=== PATIENT | female | born 1940 | race Caucasian/White ===

== ENCOUNTER → 2016-06-28 | Outpatient (CLI) | payer OTHER ==
[~2016-06-28] MED LIST: ASPI81TA28 PO; ATEN-173 PO; CALC600T9 PO; CHOL1000 PO; FLAX12003 PO
--- NOTE | 2016-06-29 13:07 | MAMMOGRAPHY REPORT ---
UNILATERAL RIGHT DIGITAL SCREENING MAMMOGRAM TOMOSYNTHESIS WITH CAD: 06/28/2016 CLINICAL HISTORY: Asymptomatic. Personal history of breast cancer. TECHNIQUE: Right breast tomosynthesis in addition to standard 2D mammography was performed. Current study was also evaluated with a Computer Aided Detection (CAD) system. COMPARISON: Comparison is made to exams dated: 06/25/2015 mammogram, 06/21/2014 mammogram, 06/20/2013 mammogram, 06/19/2012 mammogram, 06/18/2011 mammogram, and 06/12/2010 mammogram - [facility]. BREAST COMPOSITION: The tissue of the right breast is heterogeneously dense, which may obscure smal l masses. FINDINGS: There is a 13 mm asymmetry in the superior posterior right breast, projecting over the pe ctoralis muscle on the MLO view. This is thought to project medially or in the 12:00 axison the lucila osynthesis localizer bar, although it is not clearly seen on the CC projection. Additional targeted ultrasound and possible additional mammographic views are recommended. There are also 2-3 grouping s of microcalcifications in the left breast, within the central breast, 6:00 axis and upper outer qu adrant, for which additional spot magnification views are recommended. No focal area of architectural distortion is identified. IMPRESSION: ACR BI-RADS CATEGORY 0: INCOMPLETE EVALUATION: NEED ADDITIONAL IMAGING EVALUATION The 13 mm asymmetry in the superior, posterior right breast, and clusters of microcalcifications wit hin the right breast need additional imaging evaluation. The patient will be called to schedule an appointment. Approximately 10% of breast cancers are not detected with mammography. A negative mammographic repor t should not delay biopsy if a clinically suggestive mass is present. Renetta Coy M.D. ay/:06/28/2016 16:01:27 Communication Specialist: Valentín MCADAMS(R)(M), [facility] letter sent: Addl Imaging 0 BI-RADS Code: ACR BI-RADS Category 0: Incomplete Evaluation: Need Additional Imaging Evaluation
== END | disposition home or self-care (01) ==
LOC: C.MAMM 10:36
PROVIDERS: ATTEND Internal Medicine
DX: Z12.31 Encounter for screening mammogram for malignant neoplasm of breast (principal); N64.89 Other specified disorders of breast; R92.0 Mammographic microcalcification found on diagnostic imaging of breast; Z85.3 Personal history of malignant neoplasm of breast; Z90.12 Acquired absence of left breast and nipple

== ENCOUNTER → 2016-07-07 | Outpatient (CLI) | payer OTHER ==
--- NOTE | 2016-07-07 13:16 | MAMMOGRAPHY REPORT ---
UNILATERAL RIGHT DIGITAL DIAGNOSTIC MAMMOGRAM AND TARGETED RIGHT ULTRASOUND: 07/07/2016 CLINICAL HISTORY: 75-year-old woman called back from screening mammography for a 13 mm asymmetry in the superior, far posterior right breast projecting over the pectoralis muscle on the MLO view, and also clusters of microcalcifications within the right breast. Personal history of left breast cance r status post mastectomy. TECHNIQUE: Spot magnification right CC and ML views were obtained. COMPARISON: Comparison is made to exams dated: 06/28/2016 mammogram, 06/25/2015 mammogram, 06/21/2014 m ammogram, 06/20/2013 mammogram, 06/19/2012 mammogram, and 06/18/2011 mammogram - [facility]. BREAST COMPOSITION: The tissue of the right breast is heterogeneously dense, which may obscure smal l masses. FINDINGS: Spot magnification views of the right breast demonstrate a few scattered benign coarse and rim calcifications. There are also 2 clusters of microcalcifications in the middle to posterior br east in the 6:00 and 12:00 axes. When comparing back to prior available mammograms, the microcalcif ications appear similar in number and distribution dating back to at least 06/11/2009, therefore lik salty benign. Targeted ultrasound was performed in the superior right breast to assess for the 13 mm asymmetry pro jecting over the pectoralis muscle on the MLO view. In the 12:30 axis, 5 cm from the nipple, there is a mixed echogenicity hypoechoic solid mass with indistinct borders measuring 13.8 x 8.5 x 13.5 mm . This correlates well in size and location as the mammographic asymmetry and is suspicious for mal ignancy. Definitive characterization with tissue sampling is recommended. Additional sonographic e valuation was performed in the right axilla, and there is no suspicious lymphadenopathy. IMPRESSION: ACR BI-RADS CATEGORY 4C: MODERATE SUSPICION FOR MALIGNANCY, TARGETED ULTRASOUND ACR BI- RADS CATEGORY 4C: MODERATE SUSPICION FOR MALIGNANCY 1. Ultrasound guided core needle biopsy is recommended for an indeterminate solid 13.8 mm mass in t he 12:30 right breast, which correlates with the mammographic asymmetry seen on recent screening alec mography. 2. No suspicious right axillary lymphadenopathy identified on ultrasound. 3. Clusters of microcalcifications in the 12:00 and 6:00 right breast appears stable for at least 7 years, therefore considered benign. These results and recommendations were discussed with the patient and her at the time of the exam. She tentatively scheduled the biopsy prior to leaving our department. Approximately 10% of breast cancers are not detected with mammography. A negative mammographic repor t should not delay biopsy if a clinically suggestive mass is present. Renetta Coy M.D. ay/:07/07/2016 10:39:24 Oil Spraying Machine Operator: Valentín MCADAMS(Sue)(Larry), [facility] letter sent: Abnormal 4/5 BI-RADS Code: ACR BI-RADS Category 4C: Moderate Suspicion For Malignancy Ultrasound BI-RADS: ACR BI -RADS Category 4C: Moderate Suspicion For Malignancy
== END | disposition home or self-care (01) ==
LOC: C.MAMM 09:40
PROVIDERS: ATTEND Internal Medicine
DX: N63 Unspecified lump in breast (principal); R92.0 Mammographic microcalcification found on diagnostic imaging of breast

== ENCOUNTER → 2016-07-12 | Outpatient (CLI) | payer OTHER ==
--- NOTE | 2016-07-12 09:19 | Discharge Instructions ---
Discharge Instructions Procedure Procedure Date: July 12, 2016. Reason for visit: Right Mass. Discharge Discharge Date: July 12, 2016. Discharge Diagnosis: post right breast ultrasound guided core biopsy Medications Restart Stopped Medication(s): May restart Aspirin today as long as not bleeding through bandages Instructions Activity Recommendations: Additional Limitations (see below) Return to School/Work: no limitations Recommended Home Diet: No Limitations Provider Instructions: ACTIVITY RECOMMENDATIONS: * No lifting, pushing, pulling or exercising the affected side for three days. RETURN TO SCHOOL/WORK: * You may return to work/school after the procedure, but do not perform any strenuous activities for 24 to 48 hours. MEDICATIONS: * Tylenol (two 325 mg) every four to six hours if needed for mild pain (if not allergic to Tylenol). DIET: * Resume previous diet. SPECIAL CARE INSTRUCTIONS: * Keep biopsy site dry for 24 hours. May shower after 24 hours, but do not soak (bathe) incision. * May remove Tegaderm (plastic patch) tomorrow AFTER showering. * Leave the steri-strips on for one week. Allow the steri-strips to fall off by themselves. If not off after one week, you may remove them. You may place a Bandaid crosswise over the strips, if desired. * Apply ice 10 minutes on and 10 minutes off as needed. * Wear a bra at bedtime to sleep more comfortably for 2-3 days. * Your referring physician should have the results after approximately 5 to 7 business days. * Call for unusual bleeding, fever, drainage, etc or if you have any questions call [phone] during normal business hours or after hours call Dr Coy, . FOLLOW UP VISIT: Follow-up with Referring Physician as scheduled. Allergies Uncoded Allergies: N (Allergy, Unknown, 04/12/02) NKDA (Allergy, Unknown, 04/12/02) NO (Allergy, Unknown, 04/12/02) Wilfrido Day Recommendations: Call your doctor if: * Temperature above 101 degrees * Pain not relieved by pain medicine ordered * There is increased drainage or redness from any incision * You have any unanswered questions or concerns. Your Doctors Instructions noted above were prepared by provider Renetta Coy. Patient Signature Section: Patient Instructions Signature Page Karina Jackson Patient (or Guardian) Signature/Date: I have read and understand the instructions given to me by my caregivers. Caregiver/RN/Doctor Signature/Date: The above-named patient and/or guardian has received patient instructions on this date. + Original Patient Signature Page (only) stays with chart. Please make copy for patient.
--- NOTE | 2016-07-12 14:45 | MAMMOGRAPHY REPORT ---
ULTRASOUND GUIDED BIOPSY RIGHT BREAST: 07/12/2016 CLINICAL HISTORY: Indeterminate solid mass in the 12:30 right breast. Patient presents for ultrasou nd-guided core needle biopsy. Remote history of left breast cancer status post mastectomy. COMPARISON: Comparison is made to exams dated: 07/07/2016 ultrasound, 07/07/2016 mammogram, 06/28/2016 mammogram, 06/25/2015 mammogram, 06/21/2014 mammogram, and 06/20/2013 mammogram - [facility]. PATIENT CONSENT: The procedure, risks and benefits were discussed with the patient and informed writ ten consent was obtained. Specific risks to this procedure include: bleeding, infection, puncture of adjacent structure, nontarget biopsy, sampling error, metal allergy and medication reaction. PROCEDURE DESCRIPTION: A time out was performed and the right breast was agreed as the site of biops y. The skin was prepped and draped in the usual sterile fashion. The solid mass in the 12:30 right b reast was chosen as the target for biopsy. Subcutaneous and intraparenchymal 1% buffered lidocaine w as administered as local anesthesia. A skin incision was made. Through the incision, 4 samples were taken with a 14 gauge Achieve biopsy device. A metallic marker was placed at the biopsy site. Hemos tasis was achieved after manual compression. The patient tolerated the procedure well and there was no immediate complication. The samples were sent to the pathology department in an appropriately la beled container. Postprocedure right CC and ML views were obtained. The metallic biopsy marker clip is seen aligning with the mammographic mass in question on the right ML view. No significant postbiopsy hematoma is seen. Neither the mass nor the biopsy marker clip are visualized on the CC views due to the far po sterior location. IMPRESSION: ULTRASOUND GUIDED BIOPSY Status post ultrasound-guided core needle biopsy of an indeterminate solid mass in the 12:30 right b reast, with biopsy marker placed at the site. The patient will receive notification of the biopsy results from her referring physician. Renetta Coy M.D. ay/:07/12/2016 09:51:56 Project Manager/Design Manager: Shanika CONKLIN)(Larry), [facility]
--- NOTE | 2016-07-12 14:46 | MAMMOGRAPHY REPORT ---
UNILATERAL RIGHT DIGITAL DIAGNOSTIC MAMMOGRAM: 07/12/2016 CLINICAL HISTORY: Status post ultrasound guided core biopsy of a hypoechoic mass in the 12:30 right breast. Please refer to the report from right breast ultrasound guided core biopsy performed at the same tasha e for full detail. IMPRESSION: POST PROCEDURE IMAGING FOR MARKER PLACEMENT Please refer to the report from right breast ultrasound guided core biopsy performed at the same tasha e for full detail. Approximately 10% of breast cancers are not detected with mammography. A negative mammographic repor t should not delay biopsy if a clinically suggestive mass is present. Renetta Coy M.D. ay/:07/12/2016 09:18:23 Private Pilot: Shanika CONKLIN)(Larry), [facility] BI-RADS Code: Post Procedure Imaging For Marker Placement
== END | disposition home or self-care (01) ==
LOC: C.MAMM 08:17
PROVIDERS: ATTEND Internal Medicine
DX: C50.911 Malignant neoplasm of unspecified site of right female breast (principal)

== ENCOUNTER 2016-08-30 07:25 | Observation (INO) | payer OTHER ==
[2016-08-13 12:12] VITALS: BMI 23.0
--- NOTE | 2016-08-13 12:43 | PAT Medication Instructions ---
Service Date Aug 13, 2016. Current Home Medication List Aspirin (Aspirin Ec), 81 MG PO QAM Atenolol (Tenormin), 12.5 MG PO BID Calcium Carbonate-Vitamin D (Calcium + D), 1 TAB PO BID Cholecalciferol (Vitamin D3), 1 TAB PO QPM Flaxseed (Linseed) (Flaxseed Oil), 1 TAB PO BID Medication Instructions For Your Scheduled Surgery - Hold the following medications 2 weeks prior to surgery: Flaxseed (Linseed) (Flaxseed Oil), 1 TAB PO BID - Hold the following medications the morning of surgery: Calcium Carbonate-Vitamin D (Calcium + D), 1 TAB PO BID - Take the following medications the morning of surgery with a sip of water: Atenolol (Tenormin), 12.5 MG PO BID Aspirin (Aspirin Ec), 81 MG PO QAM - Take the following medications as scheduled the night before surgery: Cholecalciferol (Vitamin D3), 1 TAB PO QPM Atenolol (Tenormin), 12.5 MG PO BID Calcium Carbonate-Vitamin D (Calcium + D), 1 TAB PO BID If you have any questions please call us at [phone] or [phone] ( [place]) or [phone]
[~2016-08-30] VITALS: Ht 160 cm; Wt 58.9 kg
[2016-08-30] VITALS (7 sets, daily range): BP systolic 129–156; BP diastolic 68–85; PULSE 61–78; TEMP 36.4–36.8; O2SAT 92–99; Ht 160 cm; Wt 58.9 kg
[~2016-08-30 07:25] MED LIST changes: +LACTATED RINGER'S 1000ML 1,000 ML IV SCH
[2016-08-30] MEDS ORDERED: MIDAZOLAM HCL 1 MG/ML 2ML VIAL ONE (07:44)
[2016-08-30] MEDS ORDERED: PROPOFOL IV EMULSION 10 MG/ML 20 ML VIAL IV ONE (07:44)
[2016-08-30] MEDS ORDERED: LIDOCAINE HCL 2% 2 ML VIAL (20MG/ML) ONE (07:44)
[2016-08-30] MEDS ORDERED: DEXAMETHASONE SOD INJ 4 MG/ML VIAL ONE (07:44)
[2016-08-30] MEDS ORDERED: ONDANSETRON INJ 2 MG/ML 2 ML VIAL ONE ×2 (07:44→11:18)
[2016-08-30] MEDS ORDERED: FENTANYL CITRATE INJ 50 MCG/1 ML 2 ML VIAL ONE ×2 (07:45→10:54)
[2016-08-30] MEDS ORDERED: SCOPOLAMINE 1.5 MG TDSY TD ONE ×2 (08:38→08:45)
[2016-08-30] MEDS ORDERED: ONDANSETRON INJ 2 MG/ML 2 ML VIAL IV PRN ×2 (08:45→11:45)
[2016-08-30] MEDS ORDERED: NURSING VERBAL MED ORDER ONE (08:45)
[2016-08-30] MEDS ORDERED: FENTANYL CITRATE INJ 50 MCG/1 ML 2 ML VIAL IV PRN (08:45)
[2016-08-30] MEDS ORDERED: EpHEDrine SULFATE INJ 50 MG/ML AMP IV PRN (08:45)
[2016-08-30] MEDS ORDERED: ATROPINE SULFATE 0.1 MG/ML 5ML SYR IV PRN (08:45)
[2016-08-30] MEDS ORDERED: METHYLENE BLUE 0.5% 10 ML VIAL ONE (09:29)
--- NOTE | 2016-08-30 09:41 | DIAGNOSTIC IMAGING REPORT ---
NUCLEAR MEDICINE RIGHT BREAST LYMPHOSCINTIGRAPHY RADIOGRAPHIC INJECTION CLINICAL HISTORY: Right breast carcinoma COMPARISON STUDY: Mammogram dated 07/07/2016 FINDINGS: Timeout was performed. The patient's right breast was prepped in sterile fashion. 5 periareolar intradermal injections were performed utilizing 0.52 mCi of technetium 99m Lymphoseek. The patient was sent to the operating room for intraoperative localization. IMPRESSION: A right breast lymphoscintigraphy injection was performed Electronically signed by: Tee Ambrocio M.D. 08/30/2016 9:39 AM Dictated Date/Time: 08/30/2016 9:38 AM
--- NOTE | 2016-08-30 09:48 | History & Physical Bridge Note ---
H&P Re-Evaluation Bridge Note: I have examined the patient, reviewed the History & Physical and in the interval since the performance of the History & Physical I have noted the following changes of clinical significance: No changes noted
[2016-08-30] MEDS ORDERED: EpHEDrine SULFATE 50MG/5ML SYR ONE (10:12)
[2016-08-30] MEDS ORDERED: EpHEDrine SULFATE INJ 50 MG/ML AMP ONE (11:19)
[2016-08-30] MEDS ORDERED: SODIUM CHLORIDE 0.9% INJ 10 ML VIAL ONE (11:19)
--- NOTE | 2016-08-30 11:40 | [facility] Post Operative Brief Note ---
Immediate Operative Summary Operative Date Aug 30, 2016. Pre-Operative Diagnosis Right Breast Cancer, Stage 1 Post-Operative Diagnosis Same as preoperative Procedure(s) Performed Right Mastectomy, [place] Lymph Node Biopsy Surgeon Dr. Chuck Light Etl Bi Developer Surgeon(s) Cira Plata PA-C Estimated Blood Loss 25ml Findings See dictation Specimens FROZEN: [place] Lymph Node #1, Blue, Invivo 14, Exvivo 215 (left OR10 @ 1037) [place] Lymph Node #2, Invivo 47, Exvivo 633 (left OR10 @ 1043) [place] Lymph Node #3, Blue, Invivo 105, Exvivo (left OR10 @ 1048) FRESH: A.) Right Breast, Lateral Stitch Drains one J-P across the chest wall Anesthesia General Complication(s) None Disposition Recovery Room / PACU
[2016-08-30] MEDS ORDERED: MoRPHine SULFATE 10 MG/ML CARP/VIAL IV PRN (11:45)
[2016-08-30] MEDS ORDERED: OXYCODONE/ACETAMINOPHEN 5-325 TAB PO PRN (11:45)
[2016-08-30] MEDS ORDERED: MoRPHine SULFATE 2 MG/ML CARP IV PRN (12:00)
--- NOTE | 2016-08-30 12:08 | [facility] Operative Report ---
Operative Report Operative Date Aug 30, 2016. Pre-Operative Diagnosis Right Breast Cancer, Stage 1 Post-Operative Diagnosis Same Procedure(s) Performed Right mastectomy, right axillary sentinel lymph node biopsy Surgeon Dr. Chuck Light Pharmaceutical Analyst Surgeon(s) Cira Plata PA-C Estimated Blood Loss 25ml Findings The biopsy cavity of the breast was never encountered. There was no evidence of extension posterior to the prepectoral fascia. 3 sentinel lymph nodes were identified. [place] lymph node #1 was blue and had an in vivo count of 14 which was measured prior to incision with an ex vivo count of 215. [place] lymph node #2 was not blue and had an in vivo count of 47 and ex vivo count of 633. [place] lymph node #3 was blue and had an in vivo count of 105 with an ex vivo count of 265. Frozen section on all 3 lymph nodes showed no evidence of metastatic disease. There were no other grossly enlarged lymph nodes identified. Specimens FROZEN: [place] Lymph Node #1, Blue, Invivo 14, Exvivo 215 (left OR10 @ 1037) [place] Lymph Node #2, Invivo 47, Exvivo 633 (left OR10 @ 1043) [place] Lymph Node #3, Blue, Invivo 105, Exvivo (left OR10 @ 1048) FRESH: A.) Right Breast, Lateral Stitch Drains one J-P across the chest wall Anesthesia General Disposition Recovery Room / PACU Description of Procedure The patient was marked in the holding area and taken to the operating room placed on the operating table position and given general anesthesia. The blue dye was injected in the periareolar area. The elliptical incision was marked on the skin. The superior portion of that incision was made carried down in subcutaneous tissue and the superior flap was created extending up to the clavicle over to the lateral border of the sternum and to the lateral border of the pectoralis major. That allowed me access to the axilla where the neoprobe was used to identify sentinel lymph node #1. It was easily identified. It was grasped and away from the surrounding tissue using the LigaSure. That was sent for frozen section. [place] lymph node #2 and #3 were identified in a similar fashion. There were removed in a similar fashion and also sent for frozen section. The inferior portion of the incision was then performed. Skin flap was then created down to the superior aspect of the rectus fascia extending again over towards the lateral border of the sternal lateral border of the rectus muscle. The prepectoral fascia was then peeled off the underlying pectoralis major muscle working medial to lateral and off the muscle and chest wall. When the lymph nodes were reported to be negative the final lateral and superior lateral dissections were completed and the breast was removed. A stitch was placed on the lateral corner of the skin ellipse. Meticulous hemostasis was then obtained using electrocautery. A separate stab incision was made inferior to the incision through which a 10 mm Ran-Brown was brought. It was placed across the chest wall. Incision was then closed with interrupted 2-0 Vicryl in the deep subcutaneous tissue, running 3-0 Vicryl for the superficial subcutaneous tissue and 4-0 Monocryl in a running subcuticular fashion for the skin. The skin was cleansed dry pins were placed Steri-Strips applied. Estimate blood loss was 25 mL. Sponge needle and instrument counts were correct prior to closure. The patient tolerated the surgical procedure without complication and was transferred to recovery. I attest to the content of the Intraoperative Record and any orders documented therein. Any exceptions are noted below.
--- NOTE | 2016-08-30 12:14 | Anesthesiology Progress Note ---
Anesthesia Post Op Note Date & Time Aug 30, 2016 at 12:14 Vital Signs Pain Intensity: 0 Vital Signs Past 12 Hours Date Time Temp Pulse Resp B/P (MAP) Pulse Ox O2 Delivery O2 Flow Rate FiO2 08/30/16 12:10 78 16 126/87 100 Nasal Cannula 2 08/30/16 12:00 72 16 170/78 100 Oxymask 10 08/30/16 11:50 75 16 161/87 100 Oxymask 10 08/30/16 11:42 36.0 75 16 163/85 100 Oxymask 10 08/30/16 08:00 36.7 78 20 153/75 (101) 96 Room Air Notes Mental Status: alert / awake / arousable, participated in evaluation Pt Amnestic to Procedure: Yes Nausea / Vomiting: adequately controlled Pain: adequately controlled Airway Patency, RR, SpO2: stable & adequate BP & HR: stable & adequate Hydration State: stable & adequate Anesthetic Complications: no major complications apparent
[2016-08-30] MEDS: SODIUM CHLORIDE 0.9% 1000ML 1,000 ML IV SCH (12:57)
[2016-08-30] MEDS ORDERED: IV FLUIDS COMPLETED PRN (14:00)
[2016-08-31 03:27] VITALS: BP 119/64; PULSE 64; TEMP 36.8; O2SAT 98
[2016-08-31 07:38] VITALS: BP 134/70; PULSE 61; TEMP 36.6; O2SAT 99
--- NOTE | 2016-08-31 09:35 | Surgery Progress Note ---
Surgery Progress Note Date of Service Aug 31, 2016. Subjective Post OP Day: 1 + feeling well, + pain controlled, No nausea, No vomiting Objective Vital Signs: Date Time Temp Pulse Resp B/P (MAP) Pulse Ox O2 Delivery O2 Flow Rate FiO2 08/31/16 07:45 Room Air 08/31/16 07:38 36.6 61 18 134/70 (91) 99 Room Air 08/31/16 03:27 36.8 64 14 119/64 (82) 98 Room Air 08/31/16 00:00 Room Air 08/30/16 23:54 36.6 61 15 130/69 (89) 98 Room Air 08/30/16 20:14 36.7 78 18 129/68 (88) 92 Room Air 08/30/16 16:32 36.8 74 16 133/78 (96) 94 Room Air 08/30/16 16:10 Nasal Cannula 2.0 08/30/16 14:56 36.4 76 19 134/85 (101) 97 Nasal Cannula 2.0 08/30/16 14:00 36.6 71 19 156/82 (106) 99 Nasal Cannula 2.0 08/30/16 13:26 36.6 68 19 143/79 (100) 96 2.0 08/30/16 12:30 Nasal Cannula 2.0 08/30/16 12:30 Nasal Cannula 2.0 08/30/16 12:20 36.1 64 16 150/62 100 Nasal Cannula 2 08/30/16 12:10 78 16 126/87 100 Nasal Cannula 2 08/30/16 12:00 72 16 170/78 100 Oxymask 10 08/30/16 11:50 75 16 161/87 100 Oxymask 10 08/30/16 11:42 36.0 75 16 163/85 100 Oxymask 10 Physical Exam: KOLTON drainage (90 cc yesterday after surger, 20 cc last shift, serosanguinous) Incision(s): clean, dry, intact, no erythema, no drainage, ecchymosis Assessment & Plan S/P right mastectomy Doing well Can D/C to home Instructions discussed
--- NOTE | 2016-08-31 09:38 | Discharge Instructions ---
Discharge Instructions Date of Service Aug 31, 2016. Admission Reason for Admission: Cristina Mccray of Right Female Breast Discharge Discharge Diagnosis / Problem: Same Discharge Goals Goal(s): Improve disease control Activity Recommendations Activity Limitations: per Instructions/Follow-up section Lifting Limitations: no more than 10 pounds (especially with right arm) . Instructions / Follow-Up Instructions / Follow-Up MEDICATIONS: Resume previous medications unless instructed otherwise by your surgeon. * Percocet 5/325 mg one tablet every 4 hours as needed for pain. * Ibuprofen 600 mgm every 6 hours as needed for pain. SPECIAL CARE INSTRUCTIONS: * May shower after drain removed. * Leave steri strips on for 10 days. * Empty and record drain output. If amount decreased to less than 20 cc per day call office to have drain removed * Call the surgeon's office with any questions or concerns - (ex. temperature higher than 101 degrees F, excessive bleeding or pain). FOLLOW UP VISIT: If not already scheduled, please call the office for a follow-up appointment for next week at . Current Hospital Diet Patient's current hospital diet: Regular Diet Discharge Diet Recommended Diet: Regular Diet Procedures Procedures Performed: Right Mastectomy, [place] Lymph Node Biopsy Pending Studies Studies pending at discharge: yes List of pending studies: Pathology Medical Emergencies . Who to Call and When: Medical Emergencies: If at any time you feel your situation is an emergency, please call 911 immediately. . Non-Emergent Contact Non-Emergency issues call your: Primary Care Provider, Surgeon Call Non-Emergent contact if: your pain is worsening, wound has increased redness, wound has increased pain . "Provider Documentation" section prepared by Chuck Light. . VTE Core Measure Inpt VTE Proph given/why not?: Treatment not indicated
[2016-08-31 10:31] VITALS: BP 134/70; PULSE 61; TEMP 36.6; O2SAT 99
--- NOTE | 2016-09-02 10:50 | Discharge Summary ---
Discharge Summary Dates Admission Date / Time: Aug 30, 2016 at 08:10 Discharge Date: Aug 31, 2016 Dispostion / Condition Discharge Disposition: Home Condition at Discharge: Good Principal Diagnosis (1) Breast cancer Problem List (1) Breast cancer Consultations / Procedures Consultations: None Procedures: Right mastectomy with [place] lymph node biopsy Pending Studies / Follow-Up pathology pending Frozen path of the 3 lymph nodes during procedure were negative Medication Reconciliation Continued Medications: Aspirin (Aspirin Ec) 81 Mg Tab 81 MG PO QAM Atenolol (Tenormin) 25 Mg Tab 12.5 MG PO BID, TAB Calcium Carbonate-Vitamin D (Calcium + D) 1 Tab Tab 1 TAB PO BID Cholecalciferol (Vitamin D3) 1,000 Unit Tab 1 TAB PO QPM for 90 Days, TAB 3 Refills Flaxseed (Linseed) (Flaxseed Oil) 1 Cap Cap 1 TAB PO BID Admission HPI Per the Admitting provider: Patient was diagnosed with right breast cancer,stage 1. History of left mastectomy. Scheduled for elective right mastectomy with sentinel lymph node biopsy and possible axillary resection by Dr. Light at [facility] on 08/30/2016. She presented to [facility] for her surgical procedure as scheduled. Hospital Course (1) Breast cancer Patient was taken to operating room for right mastectomy, sentinel lymph node biopsy and possible axillary dissection. She tolerated procedure well without any complications and was transferred to PACU and then Med/surg floor in stable condition. Post op orders included PO Percocet, IV Morphine as breakthrough, IV Zofran, Regular diet, and KOLTON drain to bulb suction. POD # 1 patient was doing well. Pain was controlled with oral pain medication. All vital signs were stable. Tolerated regular diet. KOLTON drain had a total of 110 cc from surgery (90 day of surgery and 20 cc last shift). Patient was discharged home in stable condition on POD # 1. Overall hospital course was uneventful. Discharge Instructions as given to patient Copies To Primary Care Provider: Sulema Lawson. Problem Qualifiers (1) Breast cancer: Patient sex: female Laterality: right
== END 2016-08-31 11:00 | disposition home or self-care (01) ==
LOC: C.ACU 07:25 → C.MSN 08:10 → ENRESERV 12:01
PROVIDERS: ADMIT Surgery; ATTEND Surgery
DX: D05.01 Lobular carcinoma in situ of right breast (principal); D05.81 Other specified type of carcinoma in situ of right breast; N60.11 Diffuse cystic mastopathy of right breast; I10 Essential (primary) hypertension; E78.5 Hyperlipidemia, unspecified; M81.0 Age-related osteoporosis without current pathological fracture; Z79.82 Long term (current) use of aspirin; Z90.12 Acquired absence of left breast and nipple; Z80.3 Family history of malignant neoplasm of breast; Z83.3 Family history of diabetes mellitus; Z80.41 Family history of malignant neoplasm of ovary